=== PATIENT | female | born 2000 | race Caucasian/White ===

== ENCOUNTER 2022-06-18 14:02 | Emergency (ER) | payer OTHER ==
[~2022-06-18] VITALS: Ht 165.1 cm; Wt 77.3 kg
[2022-06-18 14:03] VITALS: BP 130/82
[2022-06-18] MEDS ORDERED: IBUPROFEN 600 MG TABLET PO ONE (14:15)
[2022-06-18] MEDS ORDERED: AMOX TR/POT CLAV 875 MG/125 MG TABLET PO ONE (14:15)
[2022-06-18] MEDS ORDERED: ACETAMINOPHEN 500 MG TABLET PO ONE (14:15)
[2022-06-18] MEDS ORDERED: AMOX1TAB16 PO (14:42)
== END 2022-06-18 15:10 | disposition home or self-care (01) ==
LOC: EMS 14:09
DX: H66.91 Otitis media, unspecified, right ear (principal)
CPT/HCPCS: 99284; Z7502; Z7610